=== PATIENT | male | born 1945 | race Caucasian/White ===

== ENCOUNTER → 2020-04-29 | Outpatient (CLI) | payer OTHER | LOC: SJCVC 15:19 | PROVIDERS: ATTEND Internal Medicine Cardiovascular Disease | DX: R06.09 Other forms of dyspnea (principal); R00.2 Palpitations; I10 Essential (primary) hypertension ==

== ENCOUNTER → 2020-09-20 | Outpatient (CLI) | payer OTHER ==
[~2020-09-20] MED LIST: AFRIN15 M1 SPRAY; ALLEGRA ALLERG180 MG PO; ASA81BEC PO; ASCORBIC ACID500 MG PO; BYSTOLIC2.5 MG PO; CALCIUM CARBON600 M1 PO; CATAPRES0.1 MG PAD; FLOMAX0.4 MG PO; FLONASE 0.05%50 MCG NASAL; GLUCOSAMINE CH1 EAC1 PO; SUPER THERAVIT1 EACH PO; VISION FORMULA1 EAC1 PO
== END ==
LOC: SJCVCIMAG 08-24 14:26
PROVIDERS: ATTEND Internal Medicine Cardiovascular Disease
DX: I08.3 Combined rheumatic disorders of mitral, aortic and tricuspid valves (principal); I11.9 Hypertensive heart disease without heart failure; I49.3 Ventricular premature depolarization; R00.0 Tachycardia, unspecified; G47.33 Obstructive sleep apnea (adult) (pediatric); Z88.8 Allergy status to other drugs, medicaments and biological substances; Z79.82 Long term (current) use of aspirin; Z79.899 Other long term (current) drug therapy

== ENCOUNTER → 2020-09-28 | Outpatient (CLI) | payer OTHER | LOC: SJCVCIMAG 09:27 → SJCVC 09:27 | PROVIDERS: ATTEND Internal Medicine Cardiovascular Disease | DX: R09.89 Other specified symptoms and signs involving the circulatory and respiratory systems (principal); R06.00 Dyspnea, unspecified; I10 Essential (primary) hypertension; R20.2 Paresthesia of skin; G47.30 Sleep apnea, unspecified; Z88.8 Allergy status to other drugs, medicaments and biological substances; Z79.82 Long term (current) use of aspirin; Z79.899 Other long term (current) drug therapy; Z86.73 Personal history of transient ischemic attack (TIA), and cerebral infarction without residual deficits ==

== ENCOUNTER → 2020-10-01 | Outpatient (CLI) | payer OTHER ==
[~2020-10-01] VITALS: Ht 172.7 cm; Wt 77.1 kg
[2020-10-01 08:35] VITALS: BP 145/78
--- NOTE | 2020-10-01 13:05 | CATHLAB ---
[facility] [place] [address] INVASIVE PROCEDURE REPORT Name: ANDREW TORREZ Room #: REG RITESH Winston.#: [id number] Admission: 10/01/20 Attend Phys: Hill Garcia MD Discharge: Date of : 47 Report #: [id number] THIS REPORT FOR: cc: Bryon Voss James DO Park, Jin S. MD ~ APPROVED REPORT Study performed: 10/01/2020 11:06:45 Patient Details Patient Status: Out-Patient Room #: The patient is a 75 year-old male Event Personnel Hill Garcia Director Selection And Administration, Saundra Muñoz RTR Monitor, Dione Malave RTR GabyubElias Dexter RN clinic charge nurse Performed Art Access - R femoral artery* Left Heart Cath w/or w/o Coronaries [id number] [facility] [id number] Initial Mod Sed Same Phys/QHP Gr5y [id number] Mod Sed Same Phys/QHP Ea [id number] Hemostasis with Manual pressure Indication Dyspnea, Positive stress test Risk Factors Hypercholesterolemia, Hypertension Procedure Narrative The Right Groin^ was infiltrated with 1% Lidocaine subcutaneous anesthesia. A PINNACLE 4FR Sheath #[id number] sheath was inserted into the RFA^. Coronary angiography was performed using coronary diagnostic catheters. The right coronary system was accessed and visualized with a JR4 catheter. The left coronary system was accessed and visualized with a JL4 catheter. The left ventricle was accessed and visualized with a PIGTAIL catheter. Hemostasis was obtained with manual pressure following sheath removal without any complications. The patient tolerated the procedure well and there were no complications associated with the procedure. There was no hematoma. Intraoperative Conscious Sedation [facility] [address] [place] [address] INVASIVE PROCEDURE REPORT Name: ANDREW TORREZ Room #: REG CL [facility]#: [id number] Admission: 10/01/20 Attend Phys: Hill Garcia MD Discharge: Date of : 47 Report #: [id number] Sedation start time: 11:37 Case end Time: 12:07 Fentanyl 50 mcg Versed 1 mg Fluoro Time: 3.10 minutes Dose: DAP 3979.00 cGycm2 1103 mGy Contrast Type and Amount: Omnipaque 50 ml Coronary Angiography The patient's coronary anatomy is right dominant. Diagnostic Cath Left Main The left main artery is a patent vessel, with no flow-limiting lesions. LAD The LAD is a moderate-sized caliber vessel, traverses the anterior wall and wraps around the apex. There is mild plaquing in the midsegment, less than 20%. Diagonal 1 This is a moderate-sized caliber vessel, patent with no flow-limiting lesions. Circumflex This is a patent vessel, with no flow-limiting lesions. OM1 This is a moderate-sized caliber vessel with mild disease in the proximal segment, less than 20% OM2 This is a small caliber vessel, patent with no flow-limiting lesions. Right Coronary The RCA is a moderate to large caliber vessel, dominant. There is mild disease in the proximal segment, less than 20% R PDA This is a moderate-sized caliber vessel, patent with no flow-limiting lesions. RPLV This is a moderate-sized caliber vessel, patent with no flow-limiting lesions. Left Ventriculography Left Ventriculography was not performed. Ejection Fraction was 60% based off patient's Nuclear Cardiac Stress Test. An LVEDP was measured and there is no gradient across the outflow tract. Hemodynamics The aortic pressure is 162/93 mmHg with a mean of 127 mmHg. The left ventricular pressure is 144/4 mmHg with a mean of mmHg. The left ventricular end diastolic pressure is 10 mmHg. Conclusion 1. 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 [facility] [address] [place] [address] INVASIVE PROCEDURE REPORT Name: ANDREW TORREZ Room #: REG CL [facility]#: [id number] Admission: 10/01/20 Attend Phys: Hill Garcia MD Discharge: Date of : 47 Report #: [id number] 2. This is a right dominant system. 3. There is normal LV systolic function. 4. Recommend aggressive risk factor management. <ELECTRONICALLY SIGNED> By: Hill Garcia MD 10/01/20 1305 1305 Hill Garcia MD /RADHA
== END ==
LOC: CATH 07:51
PROVIDERS: ATTEND Internal Medicine Cardiovascular Disease
DX: R94.39 Abnormal result of other cardiovascular function study (principal); R06.00 Dyspnea, unspecified; I25.10 Atherosclerotic heart disease of native coronary artery without angina pectoris; I10 Essential (primary) hypertension; E78.00 Pure hypercholesterolemia, unspecified